=== PATIENT | male | born 1990 | race Caucasian/White ===

== ENCOUNTER 2019-06-10 19:52 | Emergency (ER) | payer OTHER ==
[~2019-06-10] VITALS: Ht 170.2 cm; Wt 77.1 kg
[2019-06-10] MEDS ORDERED: NEURONTIN300 MG PO (20:04)
[2019-06-10] MEDS ORDERED: PENICILLIN V P500 MG PO (21:29)
== END 2019-06-10 22:04 | disposition home or self-care (01) ==
LOC: ED 19:52
PROC: 0HQ1XZZ Repair Face Skin, External Approach (ICD-10-PCS; principal; 2019-06-10)
DX: S01.511A Laceration without foreign body of lip, initial encounter (principal); S01.512A Laceration without foreign body of oral cavity, initial encounter; F11.10 Opioid abuse, uncomplicated; V47.5XXA Car driver injured in collision with fixed or stationary object in traffic accident, initial encounter; F17.200 Nicotine dependence, unspecified, uncomplicated; Z79.899 Other long term (current) drug therapy
CPT/HCPCS: 12011; 70450; 72125; 80053; 85025; 90471; 90715; 99284-25; G0480